=== PATIENT | female | born 1965 | race Caucasian/White ===

== ENCOUNTER 2020-01-26 13:05 | Emergency (ER) | payer OTHER ==
[~2020-01-26] VITALS: Ht 182.9 cm; Wt 104.3 kg
[2020-01-26] MEDS ORDERED: EFFEXOR XR150 MG PO (13:56)
[2020-01-26] MEDS ORDERED: TIROSINT125 MCG PO (13:56)
[2020-01-26] MEDS ORDERED: ZESTRIL10 MG PO (13:57)
[2020-01-26] MEDS ORDERED: CARAFATE1 GM PO (13:57)
[2020-01-26] MEDS ORDERED: TOPROL XL50 MG PO (13:57)
[2020-01-26] MEDS ORDERED: COLESTIPOL HCL1 GM PO (13:57)
== END 2020-01-26 14:46 | disposition home or self-care (01) ==
LOC: ED 13:05
DX: K59.00 Constipation, unspecified (principal); K21.9 Gastro-esophageal reflux disease without esophagitis; F32.9 Major depressive disorder, single episode, unspecified; Z88.5 Allergy status to narcotic agent; Z88.8 Allergy status to other drugs, medicaments and biological substances; Z88.2 Allergy status to sulfonamides; Z88.0 Allergy status to penicillin; Z79.899 Other long term (current) drug therapy
CPT/HCPCS: 74018; 80053; 81001; 83690; 85025; 99284-25; J7030